=== PATIENT | female | born 1945 | race Caucasian/White ===

== ENCOUNTER 2021-10-23 09:17 | Outpatient (CLI) | payer MEDICARE | END 2021-10-23 09:18 | disposition home or self-care (01) | LOC: CSHMAMMO 09:17 | PROVIDERS: ATTEND Internal Medicine | DX: Z12.31 Encounter for screening mammogram for malignant neoplasm of breast (principal) | CPT/HCPCS: 77063; 77067 ==

== ENCOUNTER 2022-10-29 10:06 | Outpatient (CLI) | payer MEDICARE | END 2022-10-29 10:07 | disposition home or self-care (01) | LOC: CSHMAMMO 10:06 | PROVIDERS: ATTEND Obstetrics & Gynecology | DX: Z12.31 Encounter for screening mammogram for malignant neoplasm of breast (principal) | CPT/HCPCS: 77063; 77067 ==

== ENCOUNTER 2023-12-18 12:59 | Outpatient (CLI) | payer MEDICARE | END 2023-12-18 13:00 | disposition home or self-care (01) | LOC: CSHMAMMO 12:59 | PROVIDERS: ATTEND Obstetrics & Gynecology | DX: Z12.31 Encounter for screening mammogram for malignant neoplasm of breast (principal) | CPT/HCPCS: 77063; 77067 ==

== ENCOUNTER 2025-08-18 03:56 | Emergency (ER) | payer MEDICARE ==
[2025-08-18 04:37] LABS: #Basophils 0.06 10x3/uL (0.0-0.2); #Eosinophils 0.21 10x3/uL (0.0-0.5); #Monocytes 0.61 10x3/uL (0.0-1.1); #Neutrophils 3.98 10x3/uL (1.5-8.4); %Basophils 0.8 % (0.0-2.0); %Eosinophils 2.7 % (0.0-6.0); %Lymphocytes 36.0 % (18.0-47.0); %Monocytes 8.0 % (0.0-10.0); %Neutrophils 51.8 % (40.0-75.0); Hematocrit 43.4 % (34.9-44.5); Hemoglobin 14.9 g/dL (12.0-15.5); Mean Corpuscular Hemoglobin 30.2 pg (27.0-33.0); Mean Corpuscular Volume 88.0 fL (81.6-98.3); Platelet Count 238 10x3/uL (150-450); Red Blood Cell (RBC) Count 4.93 10x6/uL (3.90-5.03); White Blood Cell (WBC) Count 7.67 10x3/uL (3.5-10.5)
[2025-08-18 04:48] LABS: ALT (SGPT) 15 U/L (Less than 34); AST (SGOT) 28 U/L (11-34); Albumin 4.5 g/dL (3.1-4.5); Alkaline Phosphatase 44 U/L (40-110); Anion Gap 14 mmol/L (10-20); BUN (Urea Nitrogen) 17 mg/dL (9.8-20.1); Bilirubin, Total 0.5 mg/dL (0.3-1.2); Calc. Creatinine Clearance 0 mL/min (70-130); Calcium 9.5 mg/dL (7.8-10.44); Carbon Dioxide 24 mmol/L (23-31); Chloride 105 mmol/L (98-107); Globulin 2.8 g/dL (2.4-3.5); Glucose 176 mg/dL (83-110); Magnesium 2.1 mg/dL (1.6-2.6); Potassium 3.8 mmol/L (3.5-5.1); Sodium 139 mmol/L (136-145)
[2025-08-18 04:57] LABS: Troponin I 0.010 ng/mL (< 0.028)
[2025-08-18 06:35] LABS: Troponin I 0.022 ng/mL (< 0.028)
== END 2025-08-18 08:23 | disposition home or self-care (01) ==
LOC: CSHERS 03:56
DX: R00.2 Palpitations (principal); I10 Essential (primary) hypertension; Z95.0 Presence of cardiac pacemaker; Z79.899 Other long term (current) drug therapy
CPT/HCPCS: 71045; 80053; 83735; 83880; 84484; 85025; 85379; 93005